=== PATIENT | female | born 1985 | race African-American/Black ===

== ENCOUNTER 2019-09-27 15:18 | Emergency (ER) | payer OTHER ==
[2019-09-27 15:34] VITALS: BP 124/89
--- NOTE | 2019-09-27 16:34 | XRay Report ---
CHEST 2 VIEWS INDICATION / CLINICAL INFORMATION: cough. COMPARISON: None available. FINDINGS: SUPPORT DEVICES: None. HEART / MEDIASTINUM: No significant abnormality. LUNGS / PLEURA: There are questionable very subtle pulmonary opacities in the right lung base which c ould represent viral pneumonia. Left lung is grossly clear. No pleural effusion. No pneumothorax. ADDITIONAL FINDINGS: No significant additional findings. IMPRESSION: 1. Questionable subtle pulmonary opacities, right lung base. This could represent subtle viral pneumo stalin and clinical correlation is recommended. Signer Name: Vianca Phelps MD Signed: 09/27/2019 4:29 PM Workstation Name: [id number]
[2019-09-27 16:47] LABS: Hematocrit 38.5 % (30.3-42.9); Hemoglobin 12.8 gm/dl (10.1-14.3); Mean Corpuscular HGB Conc 33 % (30-34); Mean Corpuscular Volume 86 fl (79-97); Platelet Count 223 K/mm3 (140-440); Red Blood Count 4.45 M/mm3 (3.65-5.03)
[2019-09-27 17:09] LABS: Alanine Aminotransferase 186 units/L (7-56); Albumin 3.8 g/dL (3.9-5); BUN/Creatinine Ratio 15; Blood Urea Nitrogen 9 mg/dL (7-17); Calcium 8.9 mg/dL (8.4-10.2); Hemolysis Index 34
--- NOTE | 2019-09-27 17:44 | Emergency Department Report ---
- General Chief Complaint: Weakness Stated Complaint: WEAKNESS Time Seen by Provider: 09/27/19 16:12 Source: patient, EMS Mode of arrival: Wheelchair Limitations: No Limitations - History of Present Illness Initial Comments: 33-year-old female presenting department with her complaining of URI symptoms over the past few days was seen and evaluated at an urgent care and scr eened for COVID 19 was discharged home with Melonie-D states that she woke up this morning complaining of feeling weakness continued because of emergency department for further evaluation. Ports no hemoptysis no hematemesis no hematochezia. No fevers chills or sweats no chest pain or palpitations no abdominal pain no dysuria no rash MD Complaint: cough -: Gradual Severity: moderate Consistency: constant Improves With: nothing Worsens With: nothing Associated Symptoms: myalgias, cough, other (Fatigue and weakness). denies: abdominal pain, vomiting, diarrhea, weight loss, epistaxis, hoarseness - Related Data Previous Rx's Medication Instructions Recorded Last Taken Type Albuterol Mdi (or & Nicu Only) 1 puff IH QID #8.5 gram 09/27/19 Unknown Rx [ProAir HFA Inhaler] Azithromycin [Zithromax] 500 mg PO QDAY #5 tablet 09/27/19 Unknown Rx Allergies Allergy/AdvReac Type Severity Reaction Status Date / Time No Known Allergies Allergy Unverified 09/27/19 15:20 ED Review of Systems ROS: Stated complaint: WEAKNESS Other details as noted in HPI Comment: All other systems reviewed and negative ED Past Medical Hx - Past Medical History Previous Medical History?: No - Surgical History Past Surgical History?: No - Social History Smoking Status: Never Smoker Substance Use Type: None - Medications Home Medications: Home Medications Medication Instructions Recorded Confirmed Last Taken Type Albuterol Mdi (or & Nicu Only) 1 puff IH QID #8.5 gram 09/27/19 Unknown Rx [ProAir HFA Inhaler] Azithromycin [Zithromax] 500 mg PO QDAY #5 tablet 09/27/19 Unknown Rx ED Physical Exam - General Limitations: No Limitations General appearance: alert, in no apparent distress - Head Head exam: Present: atraumatic, normocephalic - Eye Eye exam: Present: normal appearance - ENT ENT exam: Present: normal exam, normal orophraynx, mucous membranes moist - Neck Neck exam: Present: normal inspection, full ROM - Respiratory Respiratory exam: Present: normal lung sounds bilaterally. Absent: respiratory distress - Cardiovascular Cardiovascular Exam: Present: regular rate, normal rhythm. Absent: systolic murmur, diastolic murmur, rubs, gallop - GI/Abdominal GI/Abdominal exam: Present: soft, normal bowel sounds. Absent: distended, tenderness, hyperactive bowel sounds, hypoactive bowel sounds, organomegaly - Extremities Exam Extremities exam: Present: normal inspection, normal capillary refill - Back Exam Back exam: Present: normal inspection. Absent: CVA tenderness (R), CVA tenderness (L) - Neurological Exam Neurological exam: Present: alert, oriented X3, CN II-XII intact, normal gait - Psychiatric Psychiatric exam: Present: normal affect, normal mood - Skin Skin exam: Present: warm, dry, intact, normal color. Absent: rash ED Course Vital Signs 09/27/19 15:32 Temperature 98.6 F Pulse Rate 74 Respiratory 18 Rate Blood Pressure 124/89 O2 Sat by Pulse 99 Oximetry - Consultations Consultation #1: 09/27/19 18:16 Case was discussed with Dr. Neville who also reviewed the x-ray and agrees with the current plan ED Medical Decision Making - Lab Data Result diagrams: 09/27/19 16:32 09/27/19 16:32 - Radiology Data Radiology results: report reviewed [address] [address] XRay Report Signed Patient: ROMAN SHAHID MR#: [id number] : 1985 Acct:[id number] Age/Sex: 33 / F ADM Date: 09/27/19 Loc: ED Attending Dr: Ordering Physician: DEREK CURIEL Date of Service: 09/27/19 Procedure(s): XR chest routine 2V Accession Number(s): [id number] cc: DEREK CURIEL Fluoro Time In Minutes: CHEST 2 VIEWS INDICATION / CLINICAL INFORMATION: cough. COMPARISON: None available. FINDINGS: SUPPORT DEVICES: None. HEART / MEDIASTINUM: No significant abnormality. LUNGS / PLEURA: There are questionable very subtle pulmonary opacities in the right lung base which could represent viral pneumonia. Left lung is grossly clear. No pleural effusion. No pneumothorax. ADDITIONAL FINDINGS: No significant additional findings. IMPRESSION: 1. Questionable subtle pulmonary opacities, right lung base. This could represent subtle viral pneumonia and clinical correlation is recommended. Signer Name: Vianca Phelps MD Signed: 09/27/2019 4:29 PM Workstation Name: [id number] Transcribed By: Dictated By: Vianca Phelps MD Electronically Authenticated By: Vianca Phelps MD Signed Date/Time: 09/27/191628 DD/ 27 TD/TT: - Medical Decision Making this patient presents to the emergency department with fever and lower respiratory symptoms concerning for viral syndrome including flu and COVID-19. Patient has suspicion and is for COVID-19 infection. Differential diagnosis includes other viral causes of lower respiratory symptoms, pneumonia, asthma, bronchitis. Patient is well-appearing with acceptable vitals, lacks comorbidities admission and a reassuring physical examination and is safe to be discharged home. nasal swab for COVID testing was performed a local urgent care she was discharged with Zeke. Will add albuterol inhaler in conjunction with Zithromax antibiotic she was provided with IM Decadron while in the emergency department provide strict return precautions and instructions on self isolation/quarantine and anticipatory guidance. Patient ambulated on the emergency department with no complications maintaining saturation at 99 to 100% his heart rate stayed under 110. No complications noted we discussed the discharge summary and expectations with a vocational rehab consultant to ensure that it was understood. Senior Advisor was Stock from respiratory Critical care attestation.: If time is entered above; I have spent that time in minutes in the direct care of this critically ill patient, excluding procedure time. ED Disposition Clinical Impression: Right lower lobe pneumonia, Suspected COVID-19 virus infection Disposition: DC- TO HOME OR SELFCARE Is pt being admited?: No Does the pt Need Aspirin: No Condition: Stable Instructions: COVID-19, Community-acquired Pneumonia (ED), Bacterial Pneumonia (ED) Prescriptions: Albuterol Mdi (or & Nicu Only) [ProAir HFA Inhaler] 1 puff IH QID #8.5 gram Azithromycin [Zithromax] 500 mg PO QDAY #5 tablet Referrals: PRIMARY CARE, [Primary Care Provider] - 3-5 Days ELIOT BOSTON MD [Staff Physician] - 3-5 Days [facility] [Provider Group] - 3-5 Days [facility] [Provider Group] - 3-5 Days
== END 2019-09-27 18:31 | disposition home or self-care (01) ==
LOC: ED 15:18
DX: J18.1 Lobar pneumonia, unspecified organism (principal); Z20.828 Contact with and (suspected) exposure to other viral communicable diseases; Z79.2 Long term (current) use of antibiotics; Z79.899 Other long term (current) drug therapy
CPT/HCPCS: 36415; 71046; 80053; 85027